=== PATIENT | female | born 1965 | race Caucasian/White ===

== ENCOUNTER 2017-12-31 20:18 | Emergency (ER) | payer BC ==
[~2017-12-31] VITALS: Ht 162.6 cm; Wt 56.7 kg
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
[2017-12-31] MEDS ORDERED: IBUPROFEN 600 MG TABLET PO ONE ×2 (21:58→22:30)
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
--- NOTE | 2018-01-01 00:35 | NUR ---
Patient discharged to home in stable condition. Written and verbal after care instructions given. Patient verbalizes understanding of instruction. PT AMBULATED OUT WITH A STEADY GAIT. VSS.
[2018-01-01 01:14] VITALS: BP 121/74
== END 2018-01-01 00:35 | disposition home or self-care (01) ==
LOC: ER 20:20
DX: S20.219A Contusion of unspecified front wall of thorax, initial encounter (principal); S00.31XA Abrasion of nose, initial encounter; R51 Headache; Z88.8 Allergy status to other drugs, medicaments and biological substances; V43.52XA Car driver injured in collision with other type car in traffic accident, initial encounter; Y93.89 Activity, other specified; Y92.89 Other specified places as the place of occurrence of the external cause; Y99.8 Other external cause status
CPT/HCPCS: 70450; 71045; 71120; 72080; 72125; 73130; 99284; A4606; Z7610